=== PATIENT | female | born 1995 | race Caucasian/White ===

== ENCOUNTER → 2022-02-23 | Outpatient (CLI) | payer BC, SELFPAY ==
[2022-03-02 22:04] LABS: HPV APTIMA, High Risk Negative (Negative)
[2022-03-02 22:05] LABS: HPV Reflexed? YES, CHARGE PATIENT
== END | disposition home or self-care (01) ==
LOC: LABSPEC 11:14
PROVIDERS: Visit Provider Obstetrics & Gynecology
DX: Z12.4 Encounter for screening for malignant neoplasm of cervix (principal)
CPT/HCPCS: 87624; 88175; G0145

== ENCOUNTER 2022-03-15 07:30 | Day surgery (SDC) | payer BC, SELFPAY ==
[2022-03-15] VITALS (7 sets, daily range): BP systolic 95–105; BP diastolic 45–85; PULSE 48–86; RESP 16–18; TEMP 36.3–37.2; O2SAT 95–100; BMI 33.0
--- NOTE | 2022-03-15 | VAGMU_PTH ---
PATIENT: MARY FLOREZ LOC: [facility] – [place] U#:[id number] AGE/SX: 26/F ROOM: RE03/15/[address]: Dr. Balbir Shaw MD : 1995 BED: DIS: 03/15/2022 SPEC #: [id number] RECD: 03/15/22 13:43 STATUS: JEFFY RELanden #: [id number] NAMRATA: 03/15/22 00:[address]: Balbir Shaw DEPT: SURGICAL PATHOLOGY RECD BY: Isrrael Alaniz Tissues: Vagina, NOS Procedures: Surgery Specimen Level III HEADER OPERATION: Vaginal septum removal PRE-OP DIAGNOSIS: Pelvic pain TISSUE SUBMITTED: Vaginal mucosa MICROSCOPIC DIAGNOSIS Vaginal mucosa, septum removal: A piece of benign squamous mucosa. 03/17/22 MICROSCOPIC DESCRIPTION Slides are reviewed. GROSS DESCRIPTION Received in fixative is one container labeled with the patient's name and designated vaginal mucosa. The specimen consists of a piece of rios mucosal tissue measuring 2.5 x 1.5 x 1.0 cm. No lesion is identified. The specimen is serially sectioned and submitted in one cassette. /AM:chelsey 03/17/2022 TC: 5 CPT: 71650
--- NOTE | 2022-03-15 07:49 | PCM.HP.BLA ---
History and Physical Date of Admission: 03/15/22 Chief complaint: Pelvic pain History present illness: 26-year-old arrives for vaginal septum removal. No medical changes since last seen. All questions answered and consent signed Obstetric history: G0 Past medical history: None Medications: None Allergies: Amoxicillin, clindamycin Past surgical history: None Family history: Denies a history of DVT or PE Social history: 1 pack/day smoker, THC use. Denies drug use Review of systems: Besides above pertinent positives a full review of systems was performed and found to be negative Physical exam: Vitals: Pending General: Normal-appearing no acute distress HEENT: Normocephalic atraumatic no cervical lymphadenopathy Cardiac/respiratory: No use of accessory muscles, nonlabored breathing Abdomen: Soft, nontender, nondistended Extremities: No peripheral edema normal peripheral pulses Psych: Normal affect and demeanor nonpressured speech Assessment plan: 26-year-old arrives for vaginal septum removal. Patient understands the risk of the procedure include but are not limited to visceral or vascular injury, prolonged hospitalization, blood loss or need for transfusion, reoperation. Patient stated understanding and wished to proceed. All questions were answered and consent was signed.
[2022-03-15 08:14] LABS: Internal QC Validated? YES +Cl - CLEAR BKGD; Pregnancy, Urine Negative Negative
[2022-03-15] MEDS: Lactated Ringers 1,000 ML 15 ML IV (08:18)
--- NOTE | 2022-03-15 09:29 | DCINST_ITS ---
Discharge Instructions Diet Discharge Diet: No restrictions Activity Discharge Activity: Return to Normal Activity, May Drive and May Shower May resume sexual activity in: 4-6 weeks Weight Bearing Status: Weight bearing as tolerated Dressing / Incision Call your doctor if your incision/area has: Continuous Slow Oozing and Foul Smelling Discharge Call your doctor if you observe: Fever of 101 or Higher, Shortness of breath and Chest pain Follow Up Care Please Follow Up With: Balbir Shaw MD When: 2 weeks postoperative Test Results: Test results from this visit will be discussed in further detail at your follow- up appointment, if applicable. Discharge Plan Admission Attending Provider: Balbir Shaw Discharge Orders/Prescriptions Prescriptions: No Action NK Disposition Disposition (needs filled in before D/C Order can be placed): Home, Self Care
--- NOTE | 2022-03-15 09:30 | PCM.OPRPT ---
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 Patient understands the risk of the procedure include but are not limited to fistula or vascular injury, prolonged hospitalization, blood loss need for transfusion, reoperation. Patient stated understanding wish to proceed. All questions were answered and consent was signed. Procedure: Patient was brought back to the OR where MAC anesthesia was found to be adequate. Patient was prepared and draped in a dorsolithotomy position with yellowfin stirrups. Above findings were noted, midline septum. Using a Bovie vaginal septum removed and sent to pathology. Hemostasis was achieved with the Bovie and running locking sutures at both incision sites with 2-0 Vicryl. Good hemostasis was noted. All counts were correct x2. Patient tolerated procedure well and was brought to recovery in stable condition.
--- NOTE | 2022-03-15 10:36 | SUR.PHASEII ---
During discharge vital signs this nurse noted pulse on pulse ox to fluctuate from 45-120s. Patient states that she feels no change, no s/s of HR change. patient states they had a cardiology visit and diagnosed with irregular heart rate, on chart as history of irregular heart rate. This nurse educated on s/s and educated to call settlement agent if becomes symptomatic. patient agrees.
== END 2022-03-15 10:46 | disposition home or self-care (01) ==
LOC: SDC 07:32 → AC 07:35
PROVIDERS: Anesthesiology; Referring Provider Obstetrics & Gynecology; Visit Provider Obstetrics & Gynecology
PROC: (CPT 58260; principal; 2022-03-15 08:55)
DX: Q52.10 Doubling of vagina, unspecified (principal); R10.2 Pelvic and perineal pain; F17.200 Nicotine dependence, unspecified, uncomplicated
CPT/HCPCS: 57130; 00940; 81025; 88304; J7120; J2405